=== PATIENT | female | born 1945 | race Caucasian/White ===

== ENCOUNTER 2018-09-13 14:32 | Emergency (ER) | payer OTHER ==
[2018-09-13] MEDS: morphine 4 MG/ML VIAL IV (15:28)
[2018-09-13] MEDS: DEXAMETHASONE 10 MG/ML 1 ML INJ IV (15:30)
[2018-09-13] MEDS: KETOROLAC 15 MG INJ IV (15:30)
[2018-09-13] MEDS: CIPROFLOXACIN 0.3% 2.5 ML OPH BOTH EYES (16:26)
[2018-09-13] MEDS: BROMFENAC SODIUM 1.7 ML OPH DROP BOTH EYES (16:26)
== END 2018-09-13 16:56 | disposition home or self-care (01) ==
LOC: FTE 14:32
DX: T65.891A Toxic effect of other specified substances, accidental (unintentional), initial encounter (principal)
CPT/HCPCS: 96374; 96375; 99284-25